=== PATIENT | male | born 1965 | race Caucasian/White ===

== ENCOUNTER 2017-04-25 09:23 | Emergency (ER) | payer BC ==
[~2017-04-25] VITALS: Ht 172.7 cm; Wt 72.7 kg
[2017-04-25] MEDS ORDERED: PERCOCET 5/31 TABLET PO ×2 (09:31→11:29)
[2017-04-25] MEDS ORDERED: ZOFRAN4 MG PO (09:31)
[2017-04-25 10:26] LABS: APPEARANCE CLEAR ((CLEAR)); BILIRUBIN NEGATIVE; BLOOD NEGATIVE; COLOR YELLOW ((YELLOW)); GLUCOSE (STRIP) NEGATIVE; KETONES 20; LEUKOCYTES NEGATIVE; NITRITE NEGATIVE; PROTEIN (STRIP) 100; SPECIFIC GRAVITY 1.017 (1.000-1.030); UROBILINOGEN 0.2 MG/DL (0.2-1.0)
[2017-04-25 10:28] LABS: BACTERIA NONE SEEN /HPF; EPITHELIAL CELLS NONE SEEN /HPF; MUCUS TRACE /LPF; RED BLOOD CELLS 0-5 /HPF (0-5); WHITE BLOOD CELLS 0-5 /HPF (0-5)
[2017-04-25 10:51] LABS: BASOPHIL (%) 0.3 % (0-1); EOSINOPHIL (%) 0.4 % (0-5); HEMATOCRIT 35.2 % (38.0-50.0); HEMOGLOBIN 12.2 G/DL (12.5-16.6); IMMATURE GRANULOCYTE (%) 0.4 % (0.0-0.7); LYMPHOCYTE (%) 8.9 % (15-42); LYMPHOCYTE COUNT 0.7 K/uL (1.0-2.8); MCH 30.2 PG (29.0-34.0); MCHC 34.7 G/DL (30.0-36.0); MCV 87.1 FL (86-99); MONOCYTE (%) 7.9 % (3-12); MONOCYTE COUNT 0.6 K/uL (0-0.8); NEUTROPHIL (%) 82.1 % (45-76); NEUTROPHIL COUNT 6.2 K/uL (1.8-6.4); PLATELET COUNT 141 K/uL (156-360); RBC DIS.WIDTH-CV 12.3 % (11.8-14.6); RBC DIS.WIDTH-SD 39.8 % (39-53); RED BLOOD COUNT 4.04 M/uL (4.00-5.50); WHITE BLOOD COUNT 7.6 K/uL (4.1-10.2)
[2017-04-25 11:00] LABS: CHLORIDE 109 mEq/L (99-109); SODIUM 140 mEq/L (136-147)
[2017-04-25 11:02] LABS: GLUCOSE 95 mg/dL (70-99)
[2017-04-25 11:05] LABS: CREATININE 1.1 mg/dL (0.6-1.3); GFR ESTIMATE (CALCULATED) > 59 mL/min/ (58.99-99999)
[2017-04-25 11:06] LABS: UREA NITROGEN (BUN) 18 mg/dL (9-23)
[2017-04-25] MEDS ORDERED: TORADOL10 MG PO (11:29)
[2017-04-25 11:49] VITALS: BP 132/76
== END 2017-04-25 11:52 | disposition home or self-care (01) ==
LOC: EME 09:23
PROVIDERS: Emergency Medicine
DX: N20.0 Calculus of kidney (principal); Z87.442 Personal history of urinary calculi
CPT/HCPCS: 74176; 80048; 81003; 85025; 99281; 99285; J1885; J2405; J7030